=== PATIENT | male | born 1995 | race Caucasian/White ===

== ENCOUNTER 2017-06-28 02:30 | Emergency (ER) | payer OTHER ==
[~2017-06-28] VITALS: Ht 182.9 cm; Wt 78.4 kg
[2017-06-28 02:41] VITALS: TEMP 37; Ht 182.9 cm; Wt 78.4 kg
[2017-06-28 05:30] VITALS: BP 110/52; PULSE 76; O2SAT 98
--- NOTE | 2017-06-28 06:41 | EMERGENCY ROOM VISIT NOTE ---
History First contact with patient: 03:10 Chief Complaint: NASAL PAIN/INJURY Stated Complaint: SWOLLEN NOSE History of Present Illness The patient is a 22 year old male who presents to the Emergency Room with complaints of fall with nose and facial pain. Patient states he's been drinking alcohol. He does not feel overly intoxicated. Patient states he tripped and fell and hit his face on the ground. Patient denies neck pain, dental pain, vision problems, chest pain, dyspnea, abdominal pain, numbness, tingling or any other medical complaints. Review of Systems See HPI for pertinent positives & negatives. A total of 10 systems reviewed and were otherwise negative. Past Medical/Surgical History None Social History Smoking Status: Current Every Day Smoker Alcohol Use: occasionally Drug Use: none Occupation Status: [employer] Current/Historical Medications No Active Prescriptions or Reported Meds Physical Exam Vital Signs Date Time Temp Pulse Resp B/P (MAP) Pulse Ox O2 Delivery O2 Flow Rate FiO2 06/28/17 05:30 76 20 110/52 98 Room Air 06/28/17 03:49 78 20 121/50 98 Room Air 06/28/17 02:41 37.0 100 16 128/61 97 Room Air Physical Exam PHYSICAL EXAM: VITALS: Vitals are noted on the nurse's note and reviewed by myself. Vital signs stable. GENERAL: Pleasant male with EtOH odor, in no acute distress, nondiaphoretic, well-developed well-nourished. SKIN: Nasal bridge swelling and left frontal contusion The rest of the skin was without obvious lacerations or abrasions. Capillary reflex less than 2 seconds. HEAD: Normocephalic EARS: External auditory canals clear, tympanic membranes pearly wisdom without erythema or effusion bilaterally. No hemotympanums. No toro sign. No mastoid tenderness. EYES: Pupils equal round and reactive to light and accommodation. Conjunctivae with injection, sclerae without icterus. Extraocular movements intact. NOSE: Patent, turbinates without inflammation or discharge. No sinus tenderness. No septal hematoma or bleeding. FACE: Nasal bridge facial bone tenderness and swelling. Full range of motion of the jaw without tenderness. MOUTH: Mucous membranes moist. Pharynx without erythema or exudate. Uvula midline. Airway patent. Tongue does not deviate. NECK: Supple without nuchal rigidity. Cervical spine is nontender. Full range of motion of the neck without tenderness. No JVD. HEART: Regular rate and rhythm without murmurs gallops or rubs. LUNGS: Clear to auscultation bilaterally without wheezes, rales or rhonchi. No dullness to percussion. No retractions or accessory muscle use. No chest wall tenderness. ABDOMEN: Positive bowel sounds x 4. Normal tympanic percussion. Soft, nontender, without masses or organomegaly. No guarding or rebound tenderness. MUSCULOSKELETAL: No tenderness of the thoracic or lumbar spine. Full range of motion without tenderness to palpation in all extremities. Normal gait. Strength 5/5 throughout. NEURO: Patient was alert and oriented to person place and time. Normal Mini- Mental status exam. Normal sensation to light and sharp touch. . Cerebellar function intact. No focal neurological deficits. Medical Decision & Procedures ED Course Prior records/ancillary studies reviewed. Triage Nursing notes reviewed. The patient's history was concerning for traumatic head injury Differential diagnosis: Etiologies such as concussion, contusion, fracture, subdural hematoma, epidural hematoma, intraparenchymal hemorrhage, as well as other traumatic pathologies were entertained. Physical examination findings: As above. ER treatment provided: Ice pack to nasal bridge On reassessment the patient felt better. Diagnostics interpreted by me: Imaging studies: Nasal bone x-ray concerning for fracture per my interpretation Head CT negative for intracranial bleed per radiology and reviewed It appears the patient has a head injury with nasal bone fracture who is intoxicated so imaging was ordered. Head CT was negative for bleed or fracture. Patient is advised follow-up ENT for his nose fracture and was counseled on Head Injury Signs and Symptoms. He Is Advised to Follow-Up with Concussion Clinic if symptoms persist or here in the ER sooner for headache, fevers, confusion, worsening signs or symptoms or as needed. Patient was neurovascularly and neurologically intact. No other injuries are noted. He is ambulating without difficulties. By the evaluation outlined above emergent etiologies such as subdural hematoma , epidural hematoma, intraparenchymal hemorrhage, as well as others were deemed relatively unlikely. The pt informed about the findings as listed above. All questions were answered and pleased with the treatment. Return instructions were outlined and the patient was discharged in stable condition. Referral: The patient was referred ENT for follow-up in 2 to 3 days for a recheck of the current condition. Case reviewed with my attending Medical Decision As above [place] Drug Monitoring Program Search Results: patient reviewed within database Head Trauma GCS Score: 15 Medication Reconcilliation Current Medication List: was personally reviewed by me Blood Pressure Screening Patient's blood pressure: Normal blood pressure Impression Primary Impression: Head injury Additional Impression: Nasal fracture Departure Information Dispostion Home / Self-Care Condition GOOD Prescriptions No Active Prescriptions or Reported Meds Referrals Darrell Dennis M.D. Forms WORK / SCHOOL INSTRUCTIONS, HOME CARE DOCUMENTATION FORM, IMPORTANT VISIT INFORMATION Patient Instructions Broken Nose - [facility], [facility], ED Head Injury Closed Additional Instructions Head injury: Read head injury handout and return for any symptoms. Tylenol 1000 mg as needed for pain (Maximum 3000 mg Tylenol in 24 hr period). Avoid alcohol and contact sports/activities for one week and follow up with family doctor prior to returning to these activities if still symptomatic. Ice and elevate head. If your symptoms persist more than a week then follow up with the concussion clinic. Call [phone]. Return to ER sooner for headache, fevers, confusion, worsening signs or symptoms or as needed. Nasal fracture: Frequently ice down your nose for 15 minutes 4 times a day not directly on the skin. Follow up with ENT in 2-3 days for definitive care for your nasal fracture, call for an appointment. Return to ER sooner for headache, fevers, confusion, worsening signs or symptoms or as needed. Problem Qualifiers Primary Impression: Head injury Encounter type: initial encounter Qualified Codes: S09.90XA - Unspecified injury of head, initial encounter
--- NOTE | 2017-06-28 06:56 | DIAGNOSTIC IMAGING REPORT ---
NASAL BONES 3 VIEWS CLINICAL HISTORY: Fall with nasal pain. FINDINGS: 3 views of the nasal bones are obtained. No prior studies are available for comparison at the time of dictation. The skeletal structures are well mineralized. No depressed/distracted nasal bone fracture is clearly identified. The overlying soft tissues are normal as visualized. The paranasal sinuses and mastoid air cells are clear as imaged. The bony orbits appear intact. IMPRESSION: No depressed/distracted nasal bone fracture is identified. Clinical correlation will be required. Electronically signed by: Scott Nielsen M.D. 06/28/2017 6:55 AM Dictated Date/Time: 06/28/2017 6:53 AM
--- NOTE | 2017-06-28 08:16 | DIAGNOSTIC IMAGING REPORT ---
CT SCAN OF THE BRAIN WITHOUT IV CONTRAST CLINICAL HISTORY: Facial injury. Fall. Intoxication. COMPARISON STUDY: No priors. TECHNIQUE: Unenhanced axial CT scan of the brain is performed from the vertex to the skull base. A dose lowering technique was utilized adhering to the principles of ALARA. CT DOSE: 537.48 mGy.cm FINDINGS: Brain parenchyma: The brain parenchyma is normal in appearance. There is no hemorrhage, mass effect, or evidence of acute territorial ischemia by CT criteria. Scott-white matter is preserved. No extra-axial fluid collection is seen. Ventricles, sulci, cisterns: Normal in configuration. Intracranial vasculature: The visualized intracranial vasculature at the skull base is normal in appearance. Calvarium: There is no depressed calvarial fracture. Sinuses and mastoids: The visualized paranasal sinuses are clear. The mastoid air cells are well pneumatized. Orbits: The bony orbits are grossly intact. IMPRESSION: No acute intracranial abnormality. Electronically signed by: Scott Nielsen M.D. 06/28/2017 8:14 AM Dictated Date/Time: 06/28/2017 8:13 AM
== END 2017-06-28 06:01 | disposition home or self-care (01) ==
LOC: C.EDB 02:32
DX: S09.90XA Unspecified injury of head, initial encounter (principal); S02.2XXA Fracture of nasal bones, initial encounter for closed fracture; W01.0XXA Fall on same level from slipping, tripping and stumbling without subsequent striking against object, initial encounter; F17.200 Nicotine dependence, unspecified, uncomplicated